=== PATIENT | female | born 1970 | race Caucasian/White ===

== ENCOUNTER → 2016-11-23 | Outpatient (CLI) | payer OTHER ==
[~2016-11-23] MED LIST: ESCI1TAB10 PO; IPRASOL4 INH; ZOLP10TA PO
--- NOTE | 2016-11-26 13:49 | MAMMOGRAPHY REPORT ---
UNILATERAL RIGHT DIGITAL DIAGNOSTIC MAMMOGRAM TOMOSYNTHESIS WITH CAD AND TARGETED RIGHT ULTRASOUND: 11/23/2016 CLINICAL HISTORY: Six-month follow-up of right breast mass. The patient also notes green right nipp le discharge for the last 2 years, and the episodes of discharge are becoming more frequent. She de nies any bloody nipple discharge, palpable lumps, or other complaints. TECHNIQUE: Breast tomosynthesis in addition to standard 2D mammography was performed. Current study was also evaluated with a Computer Aided Detection (CAD) system. Right CC and MLO 2-D and tomosynt hesis images were obtained. COMPARISON: Comparison is made to exams dated: 05/10/2016 mammogram, 05/15/2016 ultrasound, 12/22/2013 mammogram, 11/18/2012 mammogram, 11/09/2011 mammogram, and 01/02/2010 mammogram - [facility]. BREAST COMPOSITION: There are scattered areas of fibroglandular density in the right breast. FINDINGS: The previously seen round partially circumscribed and partially obscured 11 mm mass seen within the right 12:00 breast is stable compared to the prior exam. The remainder of the right [address] is stable compared to prior exams, without suspicious masses, calcifications, or areas of archite ctural distortion noted. Targeted ultrasound was performed of the area of the previously seen mammographic mass. In the righ t breast at 12:00, 1 cm from the nipple, again noted is an oval circumscribed anechoic mass with mul tiple thin internal septations and no solid component, measuring 9 x 4 x 6 mm. This is stable in si ze and appearance compared to the prior April 2016 exam. This correlates with the mammographic mas s and is consistent with a benign cyst cluster. An adjacent anechoic benign simple cyst is noted me asuring 4 mm. Targeted ultrasound was also performed of the right subareolar breast, which shows no intraductal ma ss or other suspicious sonographic abnormality. IMPRESSION: ACR BI-RADS CATEGORY 2: BENIGN, TARGETED ULTRASOUND ACR BI-RADS CATEGORY 2: BENIGN 1. Stable 9 mm mass in the right breast at 12:00, which is benign and compatible with a cyst cluste r. 2. No intraductal mass or other etiology for green right nipple discharge is evident. Recommend cl inical follow-up. There is no mammographic or targeted sonographic evidence of malignancy. Return to annual mammogram screening schedule is recommended, due April 2017. The patient has been verbally notified of the r esults. Approximately 10% of breast cancers are not detected with mammography. A negative mammographic repor t should not delay biopsy if a clinically suggestive mass is present. Nandini Rodriguez M.D. ah/:11/23/2016 11:10:05 Envelope Press Operator: Chey MOULTON(Amos)(M), [facility] letter sent: Normal 1/2 BI-RADS Code: ACR BI-RADS Category 2: Benign Ultrasound BI-RADS: ACR BI-RADS Category 2: Benign
== END | disposition home or self-care (01) ==
LOC: C.MAMM 10:41
PROVIDERS: ATTEND Obstetrics & Gynecology
DX: N63 Unspecified lump in breast (principal); N64.52 Nipple discharge

== ENCOUNTER → 2017-05-13 | Outpatient (CLI) | payer OTHER ==
--- NOTE | 2017-05-13 15:24 | MAMMOGRAPHY REPORT ---
BILATERAL DIGITAL SCREENING MAMMOGRAM TOMOSYNTHESIS WITH CAD: 05/13/2017 CLINICAL HISTORY: Asymptomatic. TECHNIQUE: Breast tomosynthesis in addition to standard 2D mammography was performed. Current study was also evaluated with a Computer Aided Detection (CAD) system. COMPARISON: Comparison is made to exams dated: 11/23/2016 ultrasound, 11/23/2016 mammogram, 05/10/2016 ma mmogram, 12/22/2013 mammogram, 11/11/2012 mammogram, and 11/09/2011 mammogram - [facility]. BREAST COMPOSITION: There are scattered areas of fibroglandular density in both breasts. FINDINGS: No new suspicious mass, architectural distortion or cluster of microcalcifications is seen . There is a stable lobulated 10 mm mass in the 12:00 right breast, previously documented to represe nt a microcyst cluster on ultrasound. IMPRESSION: ACR BI-RADS CATEGORY 1: NEGATIVE There is no mammographic evidence of malignancy. A 1 year screening mammogram is recommended. The pa tient will receive written notification of the results. Approximately 10% of breast cancers are not detected with mammography. A negative mammographic report should not delay biopsy if a clinically suggestive mass is present. Ana Maria Luis M.D. ay/:05/13/2017 12:07:29 Chief Of Production: Aditi KIRAN)(Edward), [facility] letter sent: Normal 1/2 BI-RADS Code: ACR BI-RADS Category 1: Negative
== END ==
LOC: C.MAMM 11:00
PROVIDERS: ATTEND Obstetrics & Gynecology
DX: Z12.31 Encounter for screening mammogram for malignant neoplasm of breast (principal); Z85.3 Personal history of malignant neoplasm of breast

== ENCOUNTER → 2018-01-13 | Outpatient (CLI) | payer OTHER ==
[2018-01-13 14:35] LABS: HEMATOCRIT 41.6 % (37-47); HEMOGLOBIN 13.6 g/dL (12.0-16.0); MEAN CELL VOLUME 86.8 fL (80-100); MEAN CORPUSCULAR HEMOGLOBIN 28.4 pg (25-34); MEAN CORPUSCULAR HGB CONC 32.7 g/dl (32-36); MEAN PLATELET VOLUME 10.1 fL (7.4-10.4); PLATELET COUNT 461 K/uL (130-400); RED CELL DISTRIBUTION WIDTH CV 13.4 % (11.5-14.5); RED CELL DISTRIBUTION WIDTH SD 42.9 fL (36.4-46.3); WHITE BLOOD COUNT 9.12 K/uL (4.8-10.8)
== END | disposition home or self-care (01) ==
LOC: C.LAB1850 12:57
PROVIDERS: ATTEND Internal Medicine
DX: Z00.00 Encounter for general adult medical examination without abnormal findings (principal); E66.9 Obesity, unspecified